=== PATIENT | female | born 1990 | race Caucasian/White ===

== ENCOUNTER 2021-07-27 15:38 | Emergency (ER) | payer OTHER ==
--- NOTE | 2021-07-27 15:44 | NUR ---
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
--- NOTE | 2021-07-27 16:02 | NUR ---
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
--- NOTE | 2021-07-27 16:40 | NUR ---
DEVIN RN: NO ANSWER X3 TO TRIAGE FROM LOBBY AT THIS TIME
== END 2021-07-27 16:49 | disposition left against medical advice (07) ==
LOC: ED 16:00
DX: R10.9 Unspecified abdominal pain (principal); Z53.21 Procedure and treatment not carried out due to patient leaving prior to being seen by health care provider

== ENCOUNTER 2021-07-30 05:16 | Emergency (ER) | payer OTHER ==
[~2021-07-30] VITALS: Ht 175.3 cm; Wt 112.2 kg
--- NOTE | 2021-07-30 06:23 | NUR ---
THIS IS A 31F BIB EMS FROM HOME FOR SEVERE ABD CRAMPING AND BLEEDING PT IS UNK HOW FAR ALONG. BLEEDING STARTED ABOUT 4 DAYS AGO BUT WORSENED WITH PAIN TODAY. PT IN 06/28 PAIN DOES NOT WANT MEDICATIONS FOR THIS. UPON ARRIVAL PT PASSED WHAT APPEARS TO BE UTERINE CONTENTS WHILE PUSHING.
--- NOTE | 2021-07-30 06:25 | NUR ---
LAB AT BEDSIDE
[2021-07-30 06:46] LABS: BASOPHILS % (AUTO) 1 % (0-1); EOSINOPHILS % (AUTO) 1 % (1-7); LYMPHOCYTES % (AUTO) 19 % (22-44); MEAN CORPUSCULAR HEMOGLOBIN 29.8 pg (27.0-34.8); MEAN CORPUSCULAR HGB CONC 34.9 g/dL (32.4-35.8); MONOCYTES % (AUTO) 8 % (2-9); NEUTROPHILS % (AUTO) 71 % (42-75); PLATELET COUNT 279 x10^3/uL (130-400); RED BLOOD COUNT 4.59 x10^6/uL (3.82-5.3); RED CELL DISTRIBUTION WIDTH 12.8 % (9.6-15.2)
--- NOTE | 2021-07-30 07:01 | NUR ---
report from darius Walters. Patient currently in ultrasound.
[2021-07-30 07:04] LABS: ALBUMIN 3.5 g/dL (3.4-5.0); ANION GAP 10 mmol/L (5-15); CALCIUM 8.6 mg/dL (8.5-10.1); CHLORIDE 110 mmol/L (98-107); CREATININE 0.61 mg/dL (0.55-1.02)
--- NOTE | 2021-07-30 07:07 | NUR ---
PATIENT HAVING PAIN ABDOMINALLY AT 7 OF 10 BUT DOES NOT WANT PAIN MEDICATIONS. PATIENT CONTINUES TO HAVE BLEEDING, WILL GET HER SUPPLIES.
--- NOTE | 2021-07-30 07:15 | NUR ---
talked to MD Maninder about ua ordered as patient just went in ultrasound, can't go now. She states her urine mostly all blood. he said it is ok to wait on that until she's able to void.
--- NOTE | 2021-07-30 07:27 | NUR ---
got patient ob pads, unders, and supplies to help.
[2021-07-30] MEDS ORDERED: ALBUTEROL/IPRATROPIUM 2.5MG/0.5MG, 3 ML ONE (08:27)
--- NOTE | 2021-07-30 09:58 | NUR ---
PATIENT STAND BY ASSIST AT [facility] NO COMPLICATIONS. DISCHARGE REVIEWED
[2021-07-30 09:59] VITALS: BP 117/66
== END 2021-07-30 10:35 | disposition home or self-care (01) ==
LOC: ED 10:17
DX: O03.9 Complete or unspecified spontaneous abortion without complication (principal); Z32.01 Encounter for pregnancy test, result positive
CPT/HCPCS: 36415; 76815; 80048; 82040; 84702; 85025; 86850; 86900; 99285